=== PATIENT | female | born 2000 | race Two or more races ===

== ENCOUNTER 2019-03-03 15:21 | Emergency (ER) | payer BC ==
[2019-03-03 15:44] VITALS: BP 145/96
--- NOTE | 2019-03-03 15:58 | UC ---
Throat Pain/Nasal Deon HPI - HPI Summary HPI Summary: 18 year old female comes in with a chief complaint of upper respiratory tract infection symptoms for about 4 days. Has had a runny nose and mild sore throat. Does have some chest congestion but no complaint of any wheezing. No fevers measured. Has tried some [id number] medications with no relief. Patient is a type I diabetic and she has an insulin pump. Her sugar was 250. 250s high for her and it doesn't seem to be coming down much more. She does her diabetes management through a specialist in [place] and she has been in contact with them and they are helping her manage her type 1 diabetes during this illness. - History of Current Complaint Chief Complaint: UCGeneralIllness Stated Complaint: SINUS CONGESTION Time Seen by Provider: 03/03/19 15:44 Hx Last Menstrual Period: 02/24/19 Pain Intensity: 6 - Allergies/Home Medications Allergies/Adverse Reactions: Allergies Allergy/AdvReac Type Severity Reaction Status Date / Time No Known Allergies Allergy Verified 03/03/19 15:46 Home Medications: Home Medications Insulin LISPRO* [HumaLOG*] 0 units SUBCUT DIRECTED 03/03/19 [History Confirmed 03/03/19] Pseudoephedrine TAB* [Sudafed TAB*] 1 tab PO DAILY 03/03/19 [History Confirmed 03/03/19] PMH/Surg Hx/FS Hx/Imm Hx Previously Healthy: Yes Endocrine History: Diabetes - type 1 - Surgical History Surgical History: None - Family History Known Family History: Positive: Non-Contributory - Social History Alcohol Use: None Substance Use Type: None Smoking Status (MU): Never Smoked Tobacco Review of Systems All Other Systems Reviewed And Are Negative: Yes Constitutional: Positive: Other - see hpi Skin: Positive: Negative Eyes: Positive: Negative ENT: Positive: Sore Throat, Nasal Discharge, Sinus Congestion Respiratory: Positive: Cough Cardiovascular: Positive: Negative Gastrointestinal: Positive: Negative Motor: Positive: Negative Neurovascular: Positive: Negative Musculoskeletal: Positive: Negative Neurological: Positive: Negative Psychological: Positive: Negative Is Patient Immunocompromised?: No Physical Exam Triage Information Reviewed: Yes Appearance: No Pain Distress, Well-Nourished, Ill-Appearing - mild Vital Signs: Initial Vital Signs Temp 98.5 F 03/03/19 15:39 Pulse 112 03/03/19 15:39 Resp 16 03/03/19 15:39 BP 145/96 03/03/19 15:39 Pulse Ox 100 03/03/19 15:39 Vital Signs Reviewed: Yes Eye Exam: Normal Eyes: Positive: Conjunctiva Clear ENT: Positive: Pharyngeal erythema, Nasal congestion, Nasal drainage, TMs normal Neck: Positive: Supple Respiratory: Positive: Lungs clear, Normal breath sounds, No respiratory distress Cardiovascular: Positive: RRR Musculoskeletal: Positive: Strength Intact, ROM Intact Neurological: Positive: Alert, Muscle Tone Normal Psychological: Positive: Age Appropriate Behavior Skin Exam: Normal Throat Pain/Nasal Course/Dx - Course Course Of Treatment: DISCUSSED VIRAL VERSES BACTERIAL INFECTIONS AND THE ROLE OF ANTIBIOTICS. THE PATIENT PREFERS TO BE ON ANTIBIOTICS AT THIS TIME. Patient has contact with her diabetic extern in [place] and they are helping her manage her diabetes during this illness. Patient she reevaluated if worse or not improving or any questions or concerns. - Differential Dx/Diagnosis Provider Diagnosis: Upper respiratory infection Discharge ED - Sign-Out/Discharge Documenting (check all that apply): Patient Departure All imaging exams completed and their final reports reviewed: No Studies - Discharge Plan Condition: Stable Disposition: HOME Prescriptions: Azithromyxin HIEU (NF) [Z-Hieu (Zithromax) 250 mg tabs #6] 2 tab PO .TODAY, THEN 1 DAILY #6 tab Fluconazole 150 MG TAB* [Diflucan 150 MG TAB*] 150 mg PO ONCE #2 tablet Patient Education Materials: Upper Respiratory Infection (ED), Managing Diabetes During Sick Days (ED) Referrals: Gracy Ochoa NP [Primary Care Provider] - [facility] [Outside] Additional Instructions: FOLLOW UP WITH YOUR DOCTOR IF NOT COMPLETELY IMPROVED. GET REEVALUATED SOONER IF NOT IMPROVED OR WORSE OR ANY QUESTIONS OR CONCERNS. - Billing Disposition and Condition Condition: STABLE Disposition: Home
== END 2019-03-03 16:14 | disposition home or self-care (01) ==
LOC: UCEAST 15:21
DX: J06.9 Acute upper respiratory infection, unspecified (principal); E10.9 Type 1 diabetes mellitus without complications; Z79.4 Long term (current) use of insulin
CPT/HCPCS: 99212; G0463